=== PATIENT | female | born 1935 | race Caucasian/White ===

== ENCOUNTER 2017-09-03 02:28 | Emergency (ER) | payer OTHER ==
[~2017-09-03] VITALS: Ht 149.9 cm; Wt 52.2 kg
[~2017-09-03 02:28] MED LIST: DISO150C3 PO; ENAL20TA18 PO; IBUP-2213 PO
[2017-09-03 02:32] VITALS: BP 128/75
--- NOTE | 2017-09-03 03:55 | NUR ---
PT TAKEN TO BED 3.
--- NOTE | 2017-09-03 04:02 | NUR ---
82Y/F PRESENTS TO ER C/O PAIN. NKA, PMH HTN. PT STATES A WEEK AGO SHE WAS SHOVELING IN HER YARD CLEANING UP DIRT WHE THE PAIN STARTED. PT HAS PAIN TO HER UPPER BACK THAT RADIATES DOWN THE SPINE, AND RT KNEE. RT KNEE IS SWOLLEN, W/REDNESS, CMS INTACT. PT STATES PAIN IS SHARP 10/10. PT TOOK ASPIRIN AT HOME W/ NO RELIEF AND TOOK 1/2 TRAMADOL LAST NIGHT W/ NO RELIEF. SKIN INTACT, PT AA&OX4, ER MD AWARE OF PT STATUS, PT IN BED COMFORT NEEDS MET AT THIS TIME.
[2017-09-03] MEDS ORDERED: DEXAMETHASONE 10 MG/ML VIAL IM ONE (05:05)
[2017-09-03] MEDS ORDERED: HYDROcodone/APAP 5/325 MG 1 TAB TAB PO ONE (05:05)
[2017-09-03] MEDS ORDERED: KETOROLAC 30 MG/ML VIAL IM ONE (05:05)
--- NOTE | 2017-09-03 06:41 | NUR ---
Patient discharged with v/s stable. Written and verbal after care instructions given and explained. Patient alert, oriented and verbalized understanding of instructions. Wheel Chair Assisted with to car. All questions addressed prior to discharge. ID band removed. Patient advised to follow up with PMD. Rx of NAPROSYN 375MG given. Patient educated on indication of medication including possible reaction and side effects. Opportunity to ask questions provided and answered.
[2017-09-03 06:42] VITALS: BP 117/81
== END 2017-09-03 06:41 | disposition home or self-care (01) ==
LOC: MED 02:28
DX: M54.42 Lumbago with sciatica, left side (principal); M17.12 Unilateral primary osteoarthritis, left knee; I10 Essential (primary) hypertension
CPT/HCPCS: 70490; 72128; 72131; 73562; 96372; 99284; J1100; J1885; Q0092

== ENCOUNTER 2020-09-16 12:25 | Emergency (ER) | payer MEDICARE, OTHER ==
[~2020-09-16 12:25] MED LIST changes: +ENAL20TA PO; -ENAL20TA18 PO
--- NOTE | 2020-09-16 13:08 | NUR ---
Called for patient, no answer.
--- NOTE | 2020-09-16 13:56 | NUR ---
Patient left without being seen
== END 2020-09-16 13:56 | disposition left against medical advice (07) ==
LOC: MED 12:25
DX: Z53.21 Procedure and treatment not carried out due to patient leaving prior to being seen by health care provider (principal)

== ENCOUNTER 2021-01-26 19:54 | Emergency (ER) | payer MEDICARE ==
[~2021-01-26] VITALS: Ht 147.3 cm; Wt 55.3 kg
[2021-01-26 20:00] VITALS: BP 157/67
--- NOTE | 2021-01-26 20:20 | NUR ---
85 Y/O FEMALE BIBA C/O CHEST PAIN. PER EMS, "PT WAS CELEBRATING MOTHER'S DAY AND VISITED IN THE CEMETERY, PT HAD TO CLIMB UPHILL AND EXERTED EFFORT. AFTER SHE GOT HOME, SHE STARTED FEELING 10/10 CHEST PAIN THAT RADIATES TO BACK AND WAS HAVING A MINIMAL SHORTNESS OF BREATH". FAMILY GAVE 325 ASPIRIN PRIOR TO ARRIVAL. PER EMS, THEY HOLD NITROGLYCERIN BECAUSE PT'S CHEST PAIN WAS REDUCED TO A 5/10. DENIES N/V/D; SKIN IS PINK/WARM/DRY; AAOX4 WITH EVEN AND STEADY GAIT; LUNGS CLEAR BL; HR EVEN AND REGULAR; VSS; PATIENT POSITIONED FOR COMFORT; HOB ELEVATED; BEDRAILS UP X2; BED DOWN. ER MD MADE AWARE OF PT STATUS. KIMMIE PMH: HTN
[2021-01-26 20:24] LABS: BASOPHILS # (AUTO) 0.1 K/uL (0.00-0.22); BASOPHILS % (AUTO) 0.9 % (0.0-2.0); EOSINOPHILS # (AUTO) 0.3 K/uL (0-0.4); EOSINOPHILS % (AUTO) 2.9 % (0.0-4.0); HEMATOCRIT 27.7 % (36-48); HEMOGLOBIN 8.7 g/dL (12.0-16.0); LYMPHOCYTES # (AUTO) 2.3 K/uL (2.5-16.5); LYMPHOCYTES % (AUTO) 24.4 % (20.5-51.1); MEAN CORPUSCULAR HEMOGLOBIN 22 pg (27-31); MEAN CORPUSCULAR HGB CONC 31 g/dL (33-37); MEAN CORPUSCULAR VOLUME 71.4 fL (80-94); MONOCYTES # (AUTO) 0.9 K/uL (0.8-1.0); MONOCYTES % (AUTO) 9.7 % (1.7-9.3); NEUTROPHILS # (AUTO) 5.8 K/uL (1.8-7.7); NEUTROPHILS % (AUTO) 62.1 % (42.2-75.2); PLATELET COUNT (AUTO) 331 K/uL (140-450); RED BLOOD CELL COUNT(AUTO) 3.88 MIL/uL (4.20-5.40); WHITE BLOOD COUNT (AUTO) 9.3 K/uL (4.8-10.8)
[2021-01-26 20:35] LABS: ALBUMIN 3.4 g/dL (3.4-5.0); ANION GAP 16.3 (8-16); ASPARTATE AMINOTRANSFERASE 25 U/L (15-37); CARBON DIOXIDE 21.2 mmol/L (21-32); CHLORIDE 106 mmol/L (98-107); CREATININE 0.6 mg/dL (0.6-1.3); GLUCOSE 95 mg/dL (74-106); LIPASE 115 U/L (73-393); POTASSIUM 3.5 mmol/L (3.5-5.1); SODIUM SERUM 140 mmol/L (136-145); TOTAL BILIRUBIN 0.5 mg/dL (0.0-1.0); UREA NITROGEN, BLOOD 8 mg/dL (7-18)
[2021-01-26] MEDS ORDERED: OMEP40EC14 PO (22:02)
[2021-01-26] MEDS ORDERED: LISI40TA12 PO (22:02)
[2021-01-26] MEDS ORDERED: LIDOCAINE VISCOUS 2% 20 ML UDC ONE (22:03)
[2021-01-26] MEDS ORDERED: ALUMINUM HYD/MAG/SIMETHICONE 30 ML UDC ONE (22:04)
[2021-01-26] MEDS ORDERED: DICYCLOMINE HCL LIQUID 10 MG/5 ML UDC ONE (22:05)
[2021-01-26] MEDS: lisinopriL 20 MG TAB PO ONE (22:13)
[2021-01-26] MEDS: DICYCLOMINE HCL LIQUID 20 MG, ALUMINUM HYD/MAG/SIMETHICONE 30 ML, LIDOCAINE VISCOUS 2% ... PO ONE ×3 (22:13)
[2021-01-26] MEDS: PANTOPRAZOLE 40 MG TABEC PO ONE (22:14)
[2021-01-26] MEDS ORDERED: FERR325E14 PO (22:37)
[2021-01-26 22:54] VITALS: BP 139/69
--- NOTE | 2021-01-26 22:55 | NUR ---
Patient discharged with v/s stable. Written and verbal after care instructions given and explained. Patient alert, oriented and verbalized understanding of instructions. Wheel Chair Assisted with steady gait. All questions addressed prior to discharge. ID band removed. Patient advised to follow up with PMD. Rx of FERROUS SULFATE, ZESTRIL AND PRILOSEC given. Patient educated on indication of medication including possible reaction and side effects. Opportunity to ask questions provided and answered.
== END 2021-01-26 22:50 | disposition home or self-care (01) ==
LOC: MED 19:54
DX: R07.9 Chest pain, unspecified (principal); I10 Essential (primary) hypertension; K21.9 Gastro-esophageal reflux disease without esophagitis; Z79.899 Other long term (current) drug therapy
CPT/HCPCS: 36415; 71045; 80053; 83690; 84484; 85025; 93005; 99285